=== PATIENT | male | born 1995 | race African-American/Black ===

== ENCOUNTER 2019-08-11 13:58 | Emergency (ER) | payer OTHER ==
--- NOTE | 2019-08-11 14:52 | UC ---
UC General HPI - HPI Summary HPI Summary: 2 days Fever Tmax: 102 Headache - mostly frontal and side headache. No light or noise sensitive Bodyaches Chills Sore throat Minimal cough +PND Congestion Nause No vomiting/Diarrhea Decrease PO, good liquid intake - gatorade No rash No SOB or CP PMHx: None Smoker: Occasional on weekends No flu shot No known sick contacts No travel Tylenol, ibuprofen, dayquil and nyquil Currently works as a student - History of Current Complaint Chief Complaint: UCGeneralIllness Stated Complaint: FEVER,HEADACHE Time Seen by Provider: 08/11/19 14:44 Pain Intensity: 5 - Allergy/Home Medications Allergies/Adverse Reactions: Allergies Allergy/AdvReac Type Severity Reaction Status Date / Time No Known Allergies Allergy Verified 08/11/19 14:47 Home Medications: Home Medications Acetaminophen [Tylenol Extra Strength] 500 mg PO BID 08/11/19 [History Confirmed 08/11/19] PMH/Surg Hx/FS Hx/Imm Hx Previously Healthy: Yes - Surgical History Surgical History: Yes Surgery Procedure, Year, and Place: TRIGGER Rt THUMB - Social History Alcohol Use: None Substance Use Type: Marijuana Smoking Status (MU): Light Every Day Tobacco Smoker Type: Cigarettes Review of Systems All Other Systems Reviewed And Are Negative: Yes Constitutional: Positive: Fever, Chills ENT: Positive: Sore Throat, Nasal Discharge, Sinus Congestion Respiratory: Positive: Cough Physical Exam Triage Information Reviewed: Yes Vital Signs: Initial Vital Signs Resp 16 08/11/19 14:43 Vital Signs Reviewed: Yes ENT: Positive: Pharyngeal erythema, Nasal congestion Neck: Positive: Supple, Enlarged Nodes @ - anterior cervical chain on right Respiratory: Positive: Lungs clear, Normal breath sounds Cardiovascular: Positive: RRR, No Murmur Course/Dx - Course Course Of Treatment: This is a 24 yr old with fever and flu like symptoms Rapid strep: negative Flu: negative COVID sent Nontoxic appearing Plan Recommend continue to self quarantine until your results return We will contact you once we have received results Continue to rest, fluids and over the counter remedies as you have been doing If you develop any shortness of breath or chest pain, recommend going to the ER - Diagnoses Provider Diagnosis: Viral syndrome Discharge ED - Sign-Out/Discharge Documenting (check all that apply): Patient Departure All imaging exams completed and their final reports reviewed: No Studies - Discharge Plan Condition: Fair Disposition: HOME Patient Education Materials: Upper Respiratory Infection (ED) Forms: COVID-19 Tested & Isolation Referrals: [facility] - [place] [Primary Care Provider] - Additional Instructions: Recommend continue to self quarantine until your results return We will contact you once we have received results Continue to rest, fluids and over the counter remedies as you have been doing If you develop any shortness of breath or chest pain, recommend going to the ER - Billing Disposition and Condition Condition: FAIR Disposition: Home
[2019-08-11 15:19] VITALS: BP 126/68
[2019-08-11 15:25] LABS: Influenza A Molecular Negative (Negative); Influenza B Molecular Negative (Negative)
== END 2019-08-11 15:45 | disposition home or self-care (01) ==
LOC: UCEAST 13:58
DX: B34.9 Viral infection, unspecified (principal); Z20.828 Contact with and (suspected) exposure to other viral communicable diseases; F17.210 Nicotine dependence, cigarettes, uncomplicated
CPT/HCPCS: 87635; 87651; 99211; G0463